=== PATIENT | female | born 1945 | race Caucasian/White ===

== ENCOUNTER 2022-12-20 04:44 | Inpatient (IN) | payer MEDICARE ==
[2022-12-20 05:45] LABS: #Basophils 0.1 thou/uL (0.0-0.2); #Eosinphils 0.6 thou/uL (0.0-0.7); #Monocytes 0.9 thou/uL (0.11-0.59); #Neutrophils 7.7 thou/uL (1.40-6.50); %Basophils 0.9 % (0.0-1.0); %Eosinophils 5.9 % (0.0-10.0); %Lymphocytes 6.9 % (21.0-51.0); %Monocytes 8.6 % (0.0-10.0); %Neutrophils 76.9 % (42.0-75.0); Hematocrit 41.4 % (36.0-47.0); Hemoglobin 14.5 g/dL (12.0-16.0); Mean Platelet Volume 9.5 fL (7.4-10.4); Platelet Count 176 10x3/uL (130-400); RBC Distribution Width 14.2 % (11.5-14.5); Red Blood Cell (RBC) Count 4.27 mill/uL (4.20-5.40)
[2022-12-20 06:09] LABS: ALT (SGPT) 24 U/L (8-55); AST (SGOT) 34 U/L (5-34); Albumin 4.1 g/dL (3.4-4.8); Alkaline Phosphatase 87 U/L (40-110); Anion Gap 15 mmol/L (10-20); BUN (Urea Nitrogen) 17 mg/dL (9.8-20.1); Bilirubin, Total 0.4 mg/dL (0.2-1.2); Calc. Creatinine Clearance 0 mL/min (70-130); Calcium 9.1 mg/dL (7.8-10.44); Carbon Dioxide 22 mmol/L (23-31); Chloride 96 mmol/L (98-107); Estimated GFR 34; Globulin 2.3 g/dL (2.4-3.5); Glucose 97 mg/dL (83-110); Potassium 4.9 mmol/L (3.5-5.1); Protein, Total 6.4 g/dL (5.8-8.1); Sodium 128 mmol/L (136-145)
[2022-12-20 06:13] LABS: Troponin I Less than 0.010 ng/mL (< 0.028)
[2022-12-20] MEDS ORDERED: Diazepam 10 MG/2 ML SYRINGE ONE (09:06)
[2022-12-20] MEDS ORDERED: HYDROcodone/Acetaminophen 5/325 mg Tablet ONE (11:31)
[2022-12-20] MEDS ORDERED: Bisacodyl 5 MG TAB PO PRN (13:16)
[2022-12-20] MEDS ORDERED: Bisacodyl 10 MG SUPP PR PRN (13:16)
[2022-12-20] MEDS ORDERED: hydrOXYzine 25 MG TAB ONE (13:20)
[2022-12-20 13:35] LABS: Hemoglobin A1c 4.8 % (4.0-6.0)
[2022-12-20 14:08] LABS: Anion Gap 18 mmol/L (10-20); BUN (Urea Nitrogen) 14 mg/dL (9.8-20.1); Calc. Creatinine Clearance 0 mL/min (70-130); Calcium 9.1 mg/dL (7.8-10.44); Carbon Dioxide 21 mmol/L (23-31); Chloride 98 mmol/L (98-107); Estimated GFR 48; Glucose 91 mg/dL (83-110); Potassium 4.5 mmol/L (3.5-5.1); Sodium 132 mmol/L (136-145)
[2022-12-20] MEDS ORDERED: Lidocaine 4% Patch TD SCH (15:30)
[2022-12-20 15:47] LABS: Free T4 (Free Thyroxine) 1.42 ng/dL (0.70-1.48)
[2022-12-20] MEDS ORDERED: Iopamidol-370 76% 500 ML MDV (1 ML CHARGE) ONE (15:49)
[2022-12-20 17:34] VITALS: BMI 20.4
[2022-12-20] MEDS: Lidocaine 4% Patch TD SCH (17:47)
[2022-12-20] MEDS: diphenhydrAMINE 25 MG CAP PO PRN ×2 (17:48→22:08)
[2022-12-20] MEDS: HYDROcodone/Acetaminophen 5/325 mg Tablet PO PRN (18:00)
[2022-12-20 18:46] LABS: Troponin I 0.022 ng/mL (< 0.028)
[2022-12-20] MEDS ORDERED: Atorvastatin Calcium 40 MG TAB PO SCH (21:00)
[2022-12-20] MEDS: Acetaminophen 325 MG TAB PO PRN (22:06)
[2022-12-20] MEDS: Dicyclomine 10 MG CAP PO SCH (22:08)
[2022-12-21] MEDS: HYDROcodone/Acetaminophen 5/325 mg Tablet PO PRN ×4 (00:30→20:57)
[2022-12-21] MEDS: Transdermal Patch Removal TOP SCH (04:54)
[2022-12-21 05:39] LABS: #Basophils 0.1 thou/uL (0.0-0.2); #Eosinphils 1.2 thou/uL (0.0-0.7); #Monocytes 0.8 thou/uL (0.11-0.59); #Neutrophils 4.4 thou/uL (1.40-6.50); %Basophils 1.2 % (0.0-1.0); %Eosinophils 16.4 % (0.0-10.0); %Lymphocytes 10.9 % (21.0-51.0); %Monocytes 10.8 % (0.0-10.0); %Neutrophils 60.1 % (42.0-75.0); Hemoglobin 14.2 g/dL (12.0-16.0); Mean Corpuscular HGB CONC 34.6 g/dL (32.0-36.0); Mean Corpuscular Hemoglobin 33.6 pg (27.0-31.0); Mean Corpuscular Volume 97.2 fl (78.0-98.0); Mean Platelet Volume 9.4 fL (7.4-10.4); Platelet Count 192 10x3/uL (130-400); Red Blood Cell (RBC) Count 4.22 mill/uL (4.20-5.40); White Blood Cell (WBC) Count 7.3 10x3/uL (4.8-10.8)
[2022-12-21 06:14] LABS: Anion Gap 13 mmol/L (10-20); BUN (Urea Nitrogen) 18 mg/dL (9.8-20.1); CK (CPK) 51 U/L (29-168); Calc. Creatinine Clearance 28 mL/min (70-130); Calcium 8.8 mg/dL (7.8-10.44); Carbon Dioxide 24 mmol/L (23-31); Cardiac Risk 1.9 (Less than 4.5); Chloride 98 mmol/L (98-107); Cholesterol 173 mg/dl (< 200 Desired); Estimated GFR 37; Glucose 110 mg/dL (83-110); HDL Cholesterol 91 mg/dL (>60 Neg Risk); LDL Cholesterol, Calculated 73 mg/dL; Magnesium 1.3 mg/dL (1.6-2.6); Potassium 4.3 mmol/L (3.5-5.1); Sodium 131 mmol/L (136-145); Triglycerides 43 mg/dL (Less than 150)
[2022-12-21] MEDS: Aspirin Chewable 81 MG TAB PO SCH (08:57)
[2022-12-21] MEDS: Dicyclomine 10 MG CAP PO SCH ×3 (08:57→20:59)
[2022-12-21] MEDS: LOTEPREDNOL 0.5% EA EYE SCH (08:58)
[2022-12-21] MEDS ORDERED: Zolpidem Tartrate 5 MG TAB PO PRN (09:57)
[2022-12-21] MEDS ORDERED: Magnesium Sulfate 4 GM in Sodium Chloride 0.9% 250 ML 250 ML IVPB SCH (10:00)
[2022-12-21] MEDS ORDERED: Electrolyte Replacement Protocol 1 EACH FS SCH (10:00)
[2022-12-21] MEDS ORDERED: hydrOXYzine 25 MG TAB PO PRN (10:22)
[2022-12-21] MEDS ORDERED: tiZANidine HCl 4 MG TAB PO SCH (10:30)
[2022-12-21] MEDS ORDERED: Magnesium Sulfate In Water 4 GM in Premix 1 BAG IVPB SCH (10:30)
[2022-12-21] MEDS ORDERED: Electrolyte Replacement Protocol FS PRN (10:30)
[2022-12-21] MEDS: tiZANidine HCl 4 MG TAB PO SCH ×2 (10:48→20:58)
[2022-12-21] MEDS: Morphine 2 MG/ML VIAL SLOW IVP PRN (10:56)
[2022-12-21] MEDS: Lidocaine 4% Patch TD SCH (14:50)
[2022-12-21] MEDS: Senokot S 8.6-50 MG TAB PO PRN (20:59)
[2022-12-21] MEDS: diphenhydrAMINE 25 MG CAP PO PRN (21:10)
[2022-12-21] MEDS: Ondansetron PF 4 MG/2 ML Vial IVP PRN (22:23)
[2022-12-22] MEDS: diphenhydrAMINE 25 MG CAP PO PRN (03:45)
[2022-12-22] MEDS: HYDROcodone/Acetaminophen 5/325 mg Tablet PO PRN ×3 (03:46→15:35)
[2022-12-22] MEDS: Transdermal Patch Removal TOP SCH (03:53)
[2022-12-22 06:07] LABS: #Basophils 0.1 thou/uL (0.0-0.2); #Monocytes 0.7 thou/uL (0.11-0.59); #Neutrophils 6.1 thou/uL (1.40-6.50); %Basophils 0.7 % (0.0-1.0); %Eosinophils 11.7 % (0.0-10.0); %Lymphocytes 8.6 % (21.0-51.0); %Monocytes 8.1 % (0.0-10.0); %Neutrophils 70.3 % (42.0-75.0); Hematocrit 38.9 % (36.0-47.0); Hemoglobin 13.5 g/dL (12.0-16.0); Mean Corpuscular HGB CONC 34.7 g/dL (32.0-36.0); Mean Corpuscular Volume 95.1 fl (78.0-98.0); Mean Platelet Volume 9.4 fL (7.4-10.4); Platelet Count 199 10x3/uL (130-400); RBC Distribution Width 13.4 % (11.5-14.5); Red Blood Cell (RBC) Count 4.09 mill/uL (4.20-5.40); White Blood Cell (WBC) Count 8.7 10x3/uL (4.8-10.8)
[2022-12-22 06:34] LABS: Anion Gap 15 mmol/L (10-20); BUN (Urea Nitrogen) 18 mg/dL (9.8-20.1); Calc. Creatinine Clearance 33 mL/min (70-130); Calcium 8.8 mg/dL (7.8-10.44); Carbon Dioxide 22 mmol/L (23-31); Chloride 98 mmol/L (98-107); Estimated GFR 45; Glucose 101 mg/dL (83-110); Magnesium 2.3 mg/dL (1.6-2.6); Potassium 4.5 mmol/L (3.5-5.1); Sodium 130 mmol/L (136-145)
[2022-12-22] MEDS: Morphine 2 MG/ML VIAL SLOW IVP PRN (08:19)
[2022-12-22] MEDS: tiZANidine HCl 4 MG TAB PO SCH ×2 (09:49→21:18)
[2022-12-22] MEDS: FLUoxetine HCl 10 MG CAP PO SCH (10:24)
[2022-12-22] MEDS: Nebivolol HCl 5 MG TAB PO SCH (10:24)
[2022-12-22] MEDS: Dicyclomine 10 MG CAP PO SCH ×3 (10:24→21:18)
[2022-12-22] MEDS: Aspirin Chewable 81 MG TAB PO SCH (10:25)
[2022-12-22] MEDS: LOTEPREDNOL 0.5% EA EYE SCH (10:36)
[2022-12-22] MEDS: Lidocaine 4% Patch TD SCH (15:36)
[2022-12-22] MEDS: Ondansetron PF 4 MG/2 ML Vial IVP PRN (19:01)
[2022-12-22] MEDS: Acetaminophen 325 MG TAB PO PRN (21:17)
[2022-12-23] MEDS: Acetaminophen 325 MG TAB PO PRN (04:30)
[2022-12-23] MEDS: Transdermal Patch Removal TOP SCH (04:41)
[2022-12-23 06:13] LABS: Anion Gap 16 mmol/L (10-20); BUN (Urea Nitrogen) 22 mg/dL (9.8-20.1); Calc. Creatinine Clearance 26 mL/min (70-130); Calcium 8.7 mg/dL (7.8-10.44); Carbon Dioxide 18 mmol/L (23-31); Chloride 96 mmol/L (98-107); Estimated GFR 33; Glucose 99 mg/dL (83-110); Sodium 125 mmol/L (136-145)
[2022-12-23] MEDS: Nebivolol HCl 5 MG TAB PO SCH (08:36)
[2022-12-23] MEDS: Dicyclomine 10 MG CAP PO SCH ×3 (08:38→20:53)
[2022-12-23] MEDS: FLUoxetine HCl 10 MG CAP PO SCH (08:38)
[2022-12-23] MEDS: HYDROcodone/Acetaminophen 5/325 mg Tablet PO PRN ×3 (08:38→20:51)
[2022-12-23] MEDS: Sodium Chloride 1 GM TAB PO SCH ×3 (08:39→20:53)
[2022-12-23] MEDS: Aspirin Chewable 81 MG TAB PO SCH (08:39)
[2022-12-23] MEDS: tiZANidine HCl 4 MG TAB PO SCH ×2 (08:40→20:52)
[2022-12-23] MEDS: LOTEPREDNOL 0.5% EA EYE SCH (08:46)
[2022-12-23] MEDS: Ondansetron PF 4 MG/2 ML Vial IVP PRN (09:07)
[2022-12-23 10:07] LABS: Sodium 126 mmol/L (136-145)
[2022-12-23] MEDS: Lidocaine 4% Patch TD SCH (14:53)
[2022-12-24] MEDS: Transdermal Patch Removal TOP SCH (02:22)
[2022-12-24] MEDS: HYDROcodone/Acetaminophen 5/325 mg Tablet PO PRN (04:16)
[2022-12-24] MEDS ORDERED: HYDROcodone/Acetaminophen 5/325 mg Tablet PO PRN (06:15)
[2022-12-24] MEDS: diphenhydrAMINE 25 MG CAP PO PRN (07:07)
[2022-12-24 08:02] LABS: Anion Gap 13 mmol/L (10-20); BUN (Urea Nitrogen) 23 mg/dL (9.8-20.1); Calc. Creatinine Clearance 31 mL/min (70-130); Calcium 8.7 mg/dL (7.8-10.44); Carbon Dioxide 20 mmol/L (23-31); Chloride 97 mmol/L (98-107); Estimated GFR 41; Glucose 69 mg/dL (83-110); Potassium 4.4 mmol/L (3.5-5.1); Sodium 126 mmol/L (136-145)
[2022-12-24] MEDS: Nebivolol HCl 5 MG TAB PO SCH (09:12)
[2022-12-24] MEDS: Aspirin Chewable 81 MG TAB PO SCH (09:12)
[2022-12-24] MEDS: FLUoxetine HCl 10 MG CAP PO SCH (09:13)
[2022-12-24] MEDS: Sodium Chloride 1 GM TAB PO SCH ×3 (09:13→21:19)
[2022-12-24] MEDS: LOTEPREDNOL 0.5% EA EYE SCH (09:13)
[2022-12-24] MEDS: Dicyclomine 10 MG CAP PO SCH ×3 (09:13→21:20)
[2022-12-24] MEDS: Senokot S 8.6-50 MG TAB PO PRN (09:17)
[2022-12-24] MEDS: tiZANidine HCl 4 MG TAB PO SCH ×2 (09:34→17:27)
[2022-12-24] MEDS: Lidocaine 4% Patch TD SCH (15:17)
[2022-12-24] MEDS: Ondansetron PF 4 MG/2 ML Vial IVP PRN (15:58)
[2022-12-25] MEDS: tiZANidine HCl 4 MG TAB PO SCH ×3 (01:23→16:41)
[2022-12-25] MEDS: Transdermal Patch Removal TOP SCH (04:08)
[2022-12-25 05:30] LABS: Anion Gap 12 mmol/L (10-20); BUN (Urea Nitrogen) 21 mg/dL (9.8-20.1); Calc. Creatinine Clearance 34 mL/min (70-130); Calcium 8.5 mg/dL (7.8-10.44); Carbon Dioxide 20 mmol/L (23-31); Chloride 100 mmol/L (98-107); Estimated GFR 46; Glucose 80 mg/dL (83-110); Potassium 4.9 mmol/L (3.5-5.1); Sodium 127 mmol/L (136-145)
[2022-12-25] MEDS: Acetaminophen 325 MG TAB PO PRN ×2 (06:42→16:03)
[2022-12-25] MEDS: Sodium Chloride 1 GM TAB PO SCH ×2 (09:30→16:02)
[2022-12-25] MEDS: FLUoxetine HCl 10 MG CAP PO SCH (09:30)
[2022-12-25] MEDS: Dicyclomine 10 MG CAP PO SCH ×2 (09:31→16:03)
[2022-12-25] MEDS: Nebivolol HCl 5 MG TAB PO SCH (09:31)
[2022-12-25] MEDS: Aspirin Chewable 81 MG TAB PO SCH (09:31)
[2022-12-25] MEDS: LOTEPREDNOL 0.5% EA EYE SCH (09:31)
[2022-12-25] MEDS: Senokot S 8.6-50 MG TAB PO PRN (10:03)
[2022-12-25] MEDS: Lidocaine 4% Patch TD SCH (16:04)
[2022-12-25 16:37] VITALS: BP 147/71; TEMP 97.8
== END 2022-12-25 17:30 | disposition swing bed (61) | DRG 644 ==
LOC: SUATTDRO 04:44 → ERS 04:44 → 2SE 13:16
PROVIDERS: ADMIT Family Medicine; ATTEND Family Medicine
DX: E22.2 Syndrome of inappropriate secretion of antidiuretic hormone (principal); N17.9 Acute kidney failure, unspecified; S22.32XA Fracture of one rib, left side, initial encounter for closed fracture; S32.019A Unspecified fracture of first lumbar vertebra, initial encounter for closed fracture; R55 Syncope and collapse; E86.9 Volume depletion, unspecified; Z66 Do not resuscitate; I12.9 Hypertensive chronic kidney disease with stage 1 through stage 4 chronic kidney disease, or unspecified chronic kidney disease; N18.30 Chronic kidney disease, stage 3 unspecified; F41.9 Anxiety disorder, unspecified; K83.8 Other specified diseases of biliary tract; S09.90XA Unspecified injury of head, initial encounter; R10.9 Unspecified abdominal pain; M62.838 Other muscle spasm; K21.9 Gastro-esophageal reflux disease without esophagitis; E87.5 Hyperkalemia; R94.6 Abnormal results of thyroid function studies; W18.30XA Fall on same level, unspecified, initial encounter; Z90.49 Acquired absence of other specified parts of digestive tract; Z90.710 Acquired absence of both cervix and uterus; Z90.5 Acquired absence of kidney; Z98.890 Other specified postprocedural states; Z86.73 Personal history of transient ischemic attack (TIA), and cerebral infarction without residual deficits
CPT/HCPCS: 36415; 36416; 70450; 71275; 72125; 72131; 74174; 76705; 80048; 80053; 80061; 82550; 83036; 83735; 83930; 83935; 84300; 84439; 84443; 84481; 84484; 85025; 93005; 93306; 93880; 94760; 96361; 96374; J2272; J2405; J3360; J3475; Q9967

== ENCOUNTER 2023-04-15 13:55 | Outpatient (CLI) | payer MEDICARE | END 2023-04-15 13:56 | disposition home or self-care (01) | LOC: ULT 13:55 | PROVIDERS: ATTEND Family Medicine | DX: M79.89 Other specified soft tissue disorders (principal); I87.2 Venous insufficiency (chronic) (peripheral); D68.9 Coagulation defect, unspecified; I82.402 Acute embolism and thrombosis of unspecified deep veins of left lower extremity; I82.412 Acute embolism and thrombosis of left femoral vein; I82.432 Acute embolism and thrombosis of left popliteal vein ==

== ENCOUNTER 2023-04-15 14:58 | Inpatient (IN) | payer MEDICARE ==
[~2023-04-15 14:58] MED LIST: Iopamidol-370 76% 500 ML MDV (1 ML CHARGE) ONE
[2023-04-15 16:26] LABS: #Basophils 0.1 thou/uL (0.0-0.2); #Eosinphils 1.1 thou/uL (0.0-0.7); #Monocytes 0.8 thou/uL (0.11-0.59); #Neutrophils 5.5 thou/uL (1.40-6.50); %Eosinophils 12.2 % (0.0-10.0); %Lymphocytes 12.6 % (21.0-51.0); %Monocytes 9.1 % (0.0-10.0); %Neutrophils 63.6 % (42.0-75.0); Hematocrit 37.7 % (36.0-47.0); Hemoglobin 12.3 g/dL (12.0-16.0); Mean Corpuscular HGB CONC 32.6 g/dL (32.0-36.0); Mean Corpuscular Hemoglobin 31.8 pg (27.0-31.0); Mean Corpuscular Volume 97.4 fl (78.0-98.0); Mean Platelet Volume 9.7 fL (7.4-10.4); Platelet Count 311 10x3/uL (130-400); RBC Distribution Width 13.6 % (11.5-14.5); Red Blood Cell (RBC) Count 3.87 mill/uL (4.20-5.40); White Blood Cell (WBC) Count 8.7 10x3/uL (4.8-10.8)
[2023-04-15 16:46] LABS: ALT (SGPT) 12 U/L (8-55); AST (SGOT) 21 U/L (5-34); Albumin 3.7 g/dL (3.4-4.8); Alkaline Phosphatase 61 U/L (40-110); Anion Gap 13 mmol/L (10-20); BUN (Urea Nitrogen) 21 mg/dL (9.8-20.1); Bilirubin, Total 0.5 mg/dL (0.2-1.2); Calc. Creatinine Clearance 0 mL/min (70-130); Calcium 9.4 mg/dL (7.8-10.44); Carbon Dioxide 20 mmol/L (23-31); Chloride 107 mmol/L (98-107); Estimated GFR 50; Globulin 2.7 g/dL (2.4-3.5); Glucose 80 mg/dL (83-110); Potassium 4.8 mmol/L (3.5-5.1); Protein, Total 6.4 g/dL (5.8-8.1); Sodium 135 mmol/L (136-145)
[2023-04-15 17:14] LABS: Prothrombin Time 13.4 sec (12.0-14.7)
[2023-04-15 17:15] LABS: PTT 30.9 sec (22.9-36.1)
[2023-04-15 17:18] LABS: Troponin I 0.021 ng/mL (< 0.028)
[2023-04-15] MEDS ORDERED: Ondansetron PF 4 MG/2 ML Vial IVP PRN (18:44)
[2023-04-15] MEDS ORDERED: Heparin 5,000 UNITS/ML VIAL ONE (18:54)
[2023-04-15] MEDS ORDERED: Heparin 25,000 units/D5W 500 ML ONE (18:54)
[2023-04-15 20:33] LABS: Hematocrit 36.9 % (36.0-47.0); Hemoglobin 12.2 g/dL (12.0-16.0); Platelet Count 294 10x3/uL (130-400)
[2023-04-15 21:19] LABS: PTT 237.3 sec (22.9-36.1)
[2023-04-15] MEDS: hydrALAZINE 25 MG TAB PO SCH (23:20)
[2023-04-15] MEDS: Sodium Chloride 1 GM TAB PO SCH (23:20)
[2023-04-16 01:22] LABS: #Basophils 0.1 thou/uL (0.0-0.2); #Eosinphils 1.4 thou/uL (0.0-0.7); #Monocytes 0.8 thou/uL (0.11-0.59); #Neutrophils 6.6 thou/uL (1.40-6.50); %Basophils 0.9 % (0.0-1.0); %Eosinophils 13.6 % (0.0-10.0); %Lymphocytes 12.6 % (21.0-51.0); %Neutrophils 63.6 % (42.0-75.0); Hematocrit 34.1 % (36.0-47.0); Hemoglobin 11.3 g/dL (12.0-16.0); Mean Corpuscular HGB CONC 33.1 g/dL (32.0-36.0); Mean Corpuscular Hemoglobin 32.6 pg (27.0-31.0); Mean Corpuscular Volume 98.3 fl (78.0-98.0); Mean Platelet Volume 9.2 fL (7.4-10.4); Platelet Count 288 10x3/uL (130-400); RBC Distribution Width 13.6 % (11.5-14.5); Red Blood Cell (RBC) Count 3.47 mill/uL (4.20-5.40); White Blood Cell (WBC) Count 10.5 10x3/uL (4.8-10.8)
[2023-04-16 02:07] LABS: Anion Gap 14 mmol/L (10-20); BUN (Urea Nitrogen) 23 mg/dL (9.8-20.1); Calc. Creatinine Clearance 0 mL/min (70-130); Calcium 8.6 mg/dL (7.8-10.44); Carbon Dioxide 20 mmol/L (23-31); Chloride 109 mmol/L (98-107); Estimated GFR 33; Glucose 125 mg/dL (83-110); Potassium 4.1 mmol/L (3.5-5.1); Sodium 139 mmol/L (136-145)
[2023-04-16 03:25] VITALS: BMI 21.2
[2023-04-16] MEDS: Nebivolol HCl 5 MG TAB PO SCH (08:18)
[2023-04-16] MEDS: FLUoxetine HCl 10 MG CAP PO SCH (08:19)
[2023-04-16] MEDS: Ipratropium/Albuterol 3 ML NEB NEB PRN (08:39)
[2023-04-16] MEDS: Heparin 10,000 UNITS/ 10 ML VIAL SLOW IVP SCH (10:33)
[2023-04-16] MEDS: Acetaminophen 325 MG TAB PO PRN (10:58)
[2023-04-16] MEDS: diphenhydrAMINE 50 MG/ML VIAL IVP PRN (10:59)
[2023-04-16] MEDS: diphenhydrAMINE 25 MG CAP PO PRN (19:42)
[2023-04-16] MEDS: Heparin 25,000 units/D5W 500 ML IVPB SCH (21:00)
[2023-04-17 05:25] LABS: #Basophils 0.1 thou/uL (0.0-0.2); #Eosinphils 1.4 thou/uL (0.0-0.7); #Monocytes 0.8 thou/uL (0.11-0.59); #Neutrophils 5.3 thou/uL (1.40-6.50); %Basophils 0.6 % (0.0-1.0); %Eosinophils 15.3 % (0.0-10.0); %Lymphocytes 15.4 % (21.0-51.0); %Monocytes 8.6 % (0.0-10.0); %Neutrophils 58.9 % (42.0-75.0); Hematocrit 33.4 % (36.0-47.0); Mean Corpuscular HGB CONC 32.9 g/dL (32.0-36.0); Mean Corpuscular Hemoglobin 32.5 pg (27.0-31.0); Mean Corpuscular Volume 98.8 fl (78.0-98.0); Mean Platelet Volume 9.6 fL (7.4-10.4); Platelet Count 294 10x3/uL (130-400); RBC Distribution Width 13.8 % (11.5-14.5); Red Blood Cell (RBC) Count 3.38 mill/uL (4.20-5.40)
[2023-04-17 05:59] LABS: Anion Gap 12 mmol/L (10-20); BUN (Urea Nitrogen) 17 mg/dL (9.8-20.1); Calc. Creatinine Clearance 40 mL/min (70-130); Calcium 8.8 mg/dL (7.8-10.44); Carbon Dioxide 20 mmol/L (23-31); Chloride 108 mmol/L (98-107); Estimated GFR 54; Glucose 90 mg/dL (83-110); Potassium 4.2 mmol/L (3.5-5.1); Sodium 136 mmol/L (136-145)
[2023-04-17] MEDS: Apixaban 5 MG TAB PO SCH ×2 (12:40→20:38)
[2023-04-17] MEDS: Furosemide 40 MG (4 mL) VIAL SLOW IVP SCH (12:40)
[2023-04-17] MEDS: Ondansetron ODT 4 MG TAB PO PRN (16:11)
[2023-04-17 19:17] LABS: Hematocrit 34.1 % (36.0-47.0); Hemoglobin 11.2 g/dL (12.0-16.0); Platelet Count 293 10x3/uL (130-400)
[2023-04-17] MEDS: hydrALAZINE 25 MG TAB PO SCH (20:38)
[2023-04-17] MEDS ORDERED: Non-Formulary Item 1 EACH (Hydralazine Hcl [Hydralazine Hcl] 50 MG Tablet) PO SCH (21:00)
[2023-04-18 04:43] LABS: #Basophils 0.1 thou/uL (0.0-0.2); #Eosinphils 1.2 thou/uL (0.0-0.7); #Monocytes 0.8 thou/uL (0.11-0.59); #Neutrophils 4.1 thou/uL (1.40-6.50); %Basophils 0.7 % (0.0-1.0); %Eosinophils 16.4 % (0.0-10.0); %Lymphocytes 13.2 % (21.0-51.0); %Neutrophils 57.6 % (42.0-75.0); Hematocrit 32.1 % (36.0-47.0); Hemoglobin 10.6 g/dL (12.0-16.0); Mean Corpuscular Hemoglobin 32.7 pg (27.0-31.0); Mean Corpuscular Volume 99.1 fl (78.0-98.0); Mean Platelet Volume 9.5 fL (7.4-10.4); Platelet Count 304 10x3/uL (130-400); RBC Distribution Width 13.7 % (11.5-14.5); Red Blood Cell (RBC) Count 3.24 mill/uL (4.20-5.40); White Blood Cell (WBC) Count 7.1 10x3/uL (4.8-10.8)
[2023-04-18 05:15] LABS: Anion Gap 13 mmol/L (10-20); BUN (Urea Nitrogen) 20 mg/dL (9.8-20.1); Calc. Creatinine Clearance 34 mL/min (70-130); Calcium 8.5 mg/dL (7.8-10.44); Carbon Dioxide 21 mmol/L (23-31); Chloride 106 mmol/L (98-107); Estimated GFR 44; Glucose 83 mg/dL (83-110); Potassium 4.9 mmol/L (3.5-5.1); Sodium 135 mmol/L (136-145)
[2023-04-18] MEDS: Furosemide 40 MG TAB PO SCH (08:57)
[2023-04-18] MEDS: Magnesium Citrate 300 ML BOT PO SCH (09:44)
[2023-04-18] MEDS: Senokot S 8.6-50 MG TAB PO SCH (20:41)
[2023-04-19 06:51] LABS: #Basophils 0.1 thou/uL (0.0-0.2); #Eosinphils 1.1 thou/uL (0.0-0.7); #Monocytes 0.7 thou/uL (0.11-0.59); #Neutrophils 4.8 thou/uL (1.40-6.50); %Basophils 0.8 % (0.0-1.0); %Eosinophils 14.3 % (0.0-10.0); %Lymphocytes 14.9 % (21.0-51.0); %Monocytes 9.2 % (0.0-10.0); %Neutrophils 59.9 % (42.0-75.0); Hematocrit 34.5 % (36.0-47.0); Hemoglobin 11.2 g/dL (12.0-16.0); Mean Corpuscular HGB CONC 32.5 g/dL (32.0-36.0); Mean Corpuscular Hemoglobin 32.4 pg (27.0-31.0); Mean Corpuscular Volume 99.7 fl (78.0-98.0); Mean Platelet Volume 9.3 fL (7.4-10.4); Platelet Count 301 10x3/uL (130-400); RBC Distribution Width 13.7 % (11.5-14.5); Red Blood Cell (RBC) Count 3.46 mill/uL (4.20-5.40)
[2023-04-19 07:05] LABS: Anion Gap 12 mmol/L (10-20); BUN (Urea Nitrogen) 23 mg/dL (9.8-20.1); Calc. Creatinine Clearance 31 mL/min (70-130); Calcium 8.7 mg/dL (7.8-10.44); Carbon Dioxide 23 mmol/L (23-31); Chloride 106 mmol/L (98-107); Estimated GFR 40; Glucose 81 mg/dL (83-110); Potassium 4.3 mmol/L (3.5-5.1); Sodium 137 mmol/L (136-145)
[2023-04-19 18:47] LABS: Hemoglobin 11.8 g/dL (12.0-16.0); Platelet Count 295 10x3/uL (130-400)
[2023-04-20 06:11] LABS: #Basophils 0.1 thou/uL (0.0-0.2); #Eosinphils 1.1 thou/uL (0.0-0.7); #Monocytes 0.9 thou/uL (0.11-0.59); #Neutrophils 5.1 thou/uL (1.40-6.50); %Basophils 0.7 % (0.0-1.0); %Eosinophils 13.1 % (0.0-10.0); %Lymphocytes 15.1 % (21.0-51.0); %Monocytes 10.1 % (0.0-10.0); %Neutrophils 59.9 % (42.0-75.0); Hematocrit 33.2 % (36.0-47.0); Hemoglobin 10.9 g/dL (12.0-16.0); Mean Corpuscular HGB CONC 32.8 g/dL (32.0-36.0); Mean Corpuscular Hemoglobin 32.3 pg (27.0-31.0); Mean Corpuscular Volume 98.5 fl (78.0-98.0); Mean Platelet Volume 9.3 fL (7.4-10.4); Platelet Count 280 10x3/uL (130-400); RBC Distribution Width 13.5 % (11.5-14.5); Red Blood Cell (RBC) Count 3.37 mill/uL (4.20-5.40); White Blood Cell (WBC) Count 8.5 10x3/uL (4.8-10.8)
[2023-04-20 06:56] LABS: Anion Gap 13 mmol/L (10-20); BUN (Urea Nitrogen) 29 mg/dL (9.8-20.1); Calc. Creatinine Clearance 36 mL/min (70-130); Calcium 8.8 mg/dL (7.8-10.44); Carbon Dioxide 21 mmol/L (23-31); Chloride 105 mmol/L (98-107); Estimated GFR 47; Glucose 82 mg/dL (83-110); Potassium 4.2 mmol/L (3.5-5.1); Sodium 135 mmol/L (136-145)
[2023-04-20] MEDS ORDERED: hydrALAZINE 25 MG TAB PO PRN (14:52)
[2023-04-20] MEDS: Sodium Chloride 1 GM TAB PO SCH (21:05)
[2023-04-20] MEDS: diphenhydrAMINE 25 MG CAP PO PRN (21:06)
[2023-04-21 08:25] VITALS: TEMP 97.8
[2023-04-21] MEDS: Furosemide 20 MG TAB PO SCH (08:33)
[2023-04-21 16:14] VITALS: BP 143/75
[2023-04-24] MEDS ORDERED: Apixaban 5 MG TAB PO SCH (09:00)
== END 2023-04-21 17:20 | disposition home or self-care (01) | DRG 175 ==
LOC: ERS 14:58 → ERHOLD 18:42 → 2NO 21:06 → T4-B 04-17 12:25
PROVIDERS: ADMIT Hospitalist; ATTEND Internal Medicine
DX: I26.99 Other pulmonary embolism without acute cor pulmonale (principal); I50.33 Acute on chronic diastolic (congestive) heart failure; I82.411 Acute embolism and thrombosis of right femoral vein; I82.431 Acute embolism and thrombosis of right popliteal vein; N17.9 Acute kidney failure, unspecified; Z66 Do not resuscitate; I13.0 Hypertensive heart and chronic kidney disease with heart failure and stage 1 through stage 4 chronic kidney disease, or unspecified chronic kidney disease; E87.1 Hypo-osmolality and hyponatremia; N18.30 Chronic kidney disease, stage 3 unspecified; D53.9 Nutritional anemia, unspecified; D63.1 Anemia in chronic kidney disease; K58.9 Irritable bowel syndrome, unspecified; Z86.73 Personal history of transient ischemic attack (TIA), and cerebral infarction without residual deficits; Z90.710 Acquired absence of both cervix and uterus; Z88.8 Allergy status to other drugs, medicaments and biological substances; Z79.899 Other long term (current) drug therapy; Z90.49 Acquired absence of other specified parts of digestive tract; Z98.890 Other specified postprocedural states
CPT/HCPCS: 36415; 71045; 71275; 80048; 80053; 83735; 83880; 84484; 85025; 85610; 85730; 93005; 94640; 96365; 96366; 96375; J1200; J1644; J1940; J7620; Q0162

== ENCOUNTER 2023-07-16 17:03 | Inpatient (IN) | payer MEDICARE, OTHER ==
[2023-07-16 19:06] LABS: Amphetamine Not Detected (NotDetected); Barbiturates Screen Not Detected (NotDetected); Benzodiazepine Screen Not Detected (NotDetected); Cocaine Metabolite Screen Not Detected (NotDetected); Methadone Not Detected (NotDetected); Methamphetamine Not Detected (NotDetected); Opiate Screen Not Detected (NotDetected); Oxycodone Screen Not Detected (NotDetected); Phencyclidine (PCP) Not Detected (NotDetected); THC/Cannabinoid Screen Not Detected (NotDetected); Tricyclic Screen Not Detected (NotDetected)
[2023-07-16 19:10] LABS: Bacteria/HPF 2+ HPF (None Seen); Bilirubin Negative (Negative); Blood, Urine 1+ (Negative); CAUTI Indications for Culture Dysuria,urgency,freq; Clarity Turbid (Clear); Glucose, Urine (Dipstick) Normal (Negative); Ketone, Urine 10 mg/dL (Negative); Leukocyte 500 Leu/uL (Negative); Nitrite Negative (Negative); Protein, Urine (Dipstick) 20 mg/dL (Neg-Trace); Specific Gravity, Urine 1.015 (1.002-1.036); Squamous Epithelial None Seen HPF (0-3); WBC/HPF Greater than 50 HPF (0-3); pH, Urine 5.5 (5.0-9.0)
[2023-07-16 19:22] LABS: Urine Culture Reflex Yes Yes
[2023-07-16] MEDS ORDERED: cefTRIAXone (ROCEPHIN) 2 GM VIAL ONE (19:29)
[2023-07-16] MEDS ORDERED: Sodium Chloride 0.9% 100 ML ONE (19:29)
[2023-07-16 20:18] LABS: #Basophils 0.06 10x3/uL (0.0-0.2); %Basophils 0.9 % (0.0-1.0); %Eosinophils 4.1 % (0.0-10.0); %Lymphocytes 11.1 % (21.0-51.0); %Monocytes 12.3 % (0.0-10.0); %Neutrophils 70.8 % (42.0-75.0); Hematocrit 38.8 % (36.0-47.0); Hemoglobin 13.1 g/dL (12.0-16.0); Mean Corpuscular HGB CONC 33.8 g/dL (32.0-36.0); Mean Corpuscular Hemoglobin 32.9 pg (27.0-31.0); Mean Corpuscular Volume 97.5 fL (78.0-98.0); Mean Platelet Volume 9.5 fL (7.4-10.4); Platelet Count 206 10x3/uL (130-400); RBC Distribution Width 13.7 % (11.5-14.5); Red Blood Cell (RBC) Count 3.98 mill/uL (4.20-5.40)
[2023-07-16 20:28] LABS: Lipase 12 U/L (8-78)
[2023-07-16 20:30] LABS: Acetaminophen Less than 10 mcg/mL (10.0-30.0); Alcohol Less than 10.0 mg/dL (Less than 10); Salicylate Less than 8.0 mg/dL (15.0-30.0)
[2023-07-16 20:32] LABS: ALT (SGPT) 47 U/L (8-55); AST (SGOT) 75 U/L (5-34); Albumin 3.4 g/dL (3.4-4.8); Alkaline Phosphatase 67 U/L (40-110); Anion Gap 19 mmol/L (10-20); BUN (Urea Nitrogen) 42 mg/dL (9.8-20.1); Bilirubin, Total 0.8 mg/dL (0.2-1.2); CK (CPK) 677 U/L (29-168); Calc. Creatinine Clearance 0 mL/min (70-130); Calcium 8.7 mg/dL (7.8-10.44); Carbon Dioxide 18 mmol/L (23-31); Chloride 111 mmol/L (98-107); Estimated GFR 30; Globulin 2.4 g/dL (2.4-3.5); Glucose 81 mg/dL (83-110); Potassium 4.3 mmol/L (3.5-5.1); Protein, Total 5.8 g/dL (5.8-8.1); Sodium 144 mmol/L (136-145)
[2023-07-16 20:37] LABS: Troponin I 0.086 ng/mL (< 0.028)
[2023-07-16] MEDS ORDERED: Vancomycin 1 GM/200 ML (FROZEN) BAG ONE (21:50)
[2023-07-16] MEDS ORDERED: Aspirin Chewable 81 MG TAB ONE ×2 (21:50→21:52)
[2023-07-16] MEDS ORDERED: Ondansetron PF 4 MG/2 ML Vial IVP PRN (22:56)
[2023-07-16] MEDS ORDERED: Ondansetron ODT 4 MG TAB PO PRN (22:56)
[2023-07-16] MEDS: D5 1/2 NS w/20 mEq KCL 1,000 ML IV SCH (23:30)
[2023-07-17 00:05] LABS: #Basophils 0.08 10x3/uL (0.0-0.2); %Basophils 1.2 % (0.0-1.0); %Eosinophils 6.7 % (0.0-10.0); %Monocytes 12.9 % (0.0-10.0); %Neutrophils 62.3 % (42.0-75.0); Hematocrit 39.4 % (36.0-47.0); Hemoglobin 13.3 g/dL (12.0-16.0); Mean Corpuscular HGB CONC 33.8 g/dL (32.0-36.0); Mean Corpuscular Hemoglobin 33.3 pg (27.0-31.0); Mean Corpuscular Volume 98.5 fL (78.0-98.0); Mean Platelet Volume 9.5 fL (7.4-10.4); Platelet Count 193 10x3/uL (130-400); RBC Distribution Width 13.9 % (11.5-14.5)
[2023-07-17 00:26] LABS: Anion Gap 18 mmol/L (10-20); BUN (Urea Nitrogen) 39 mg/dL (9.8-20.1); Calc. Creatinine Clearance 0 mL/min (70-130); Calcium 8.9 mg/dL (7.8-10.44); Carbon Dioxide 18 mmol/L (23-31); Chloride 110 mmol/L (98-107); Estimated GFR 37; Glucose 105 mg/dL (83-110); Potassium 3.9 mmol/L (3.5-5.1); Sodium 142 mmol/L (136-145)
[2023-07-17 00:27] LABS: Troponin I 0.075 ng/mL (< 0.028)
[2023-07-17] MEDS ORDERED: Pantoprazole DR 40 MG TAB PO SCH (09:00)
[2023-07-17] MEDS: hydrALAZINE 25 MG TAB PO SCH (09:41)
[2023-07-17] MEDS: Enoxaparin 30 MG (0.3 mL) SYRINGE SC SCH (09:41)
[2023-07-17] MEDS: FLUoxetine HCl 10 MG CAP PO SCH (09:42)
[2023-07-17] MEDS: Pantoprazole DR 40 MG TAB PO SCH (09:42)
[2023-07-17] MEDS: Sodium Chloride 1 GM TAB PO SCH (09:42)
[2023-07-17] MEDS: Nebivolol HCl 5 MG TAB PO SCH (09:42)
[2023-07-17] MEDS: cefTRIAXone\\ROCEPHIN 1 GM in Sodium Chloride 0.9% 100 ML IVPB SCH (14:15)
[2023-07-17] MEDS: Apixaban 5 MG TAB PO SCH (20:39)
[2023-07-18] MEDS: Acetaminophen 325 MG TAB PO PRN (00:02)
[2023-07-18 01:14] LABS: Magnesium 1.5 mg/dL (1.6-2.6); Potassium 3.6 mmol/L (3.5-5.1)
[2023-07-18 06:30] LABS: Anion Gap 14 mmol/L (10-20); BUN (Urea Nitrogen) 30 mg/dL (9.8-20.1); CK (CPK) 164 U/L (29-168); Calc. Creatinine Clearance 31 mL/min (70-130); Calcium 8.7 mg/dL (7.8-10.44); Carbon Dioxide 20 mmol/L (23-31); Chloride 111 mmol/L (98-107); Estimated GFR 45; Glucose 85 mg/dL (83-110); Potassium 3.7 mmol/L (3.5-5.1); Sodium 141 mmol/L (136-145)
[2023-07-18] MEDS ORDERED: Magnesium Sulfate 4 GM in Sodium Chloride 0.9% 250 ML 250 ML IVPB SCH (07:45)
[2023-07-18] MEDS: Magnesium Sulfate In Water 4 GM in Premix 1 BAG IVPB SCH (08:38)
[2023-07-18] MEDS: diphenhydrAMINE 25 MG CAP PO SCH (21:25)
[2023-07-19] MEDS: Sodium Chloride 0.9% 500 ML IV SCH (02:33)
[2023-07-19 05:43] LABS: #Basophils 0.07 10x3/uL (0.0-0.2); %Basophils 1.3 % (0.0-1.0); %Eosinophils 13.3 % (0.0-10.0); %Lymphocytes 25.3 % (21.0-51.0); %Monocytes 15.4 % (0.0-10.0); %Neutrophils 43.4 % (42.0-75.0); Hematocrit 33.9 % (36.0-47.0); Hemoglobin 11.6 g/dL (12.0-16.0); Mean Corpuscular HGB CONC 34.2 g/dL (32.0-36.0); Mean Corpuscular Hemoglobin 33.5 pg (27.0-31.0); Mean Platelet Volume 9.6 fL (7.4-10.4); Platelet Count 214 10x3/uL (130-400); RBC Distribution Width 13.8 % (11.5-14.5); Red Blood Cell (RBC) Count 3.46 mill/uL (4.20-5.40)
[2023-07-19 06:13] LABS: Anion Gap 13 mmol/L (10-20); BUN (Urea Nitrogen) 23 mg/dL (9.8-20.1); Calc. Creatinine Clearance 38 mL/min (70-130); Calcium 8.6 mg/dL (7.8-10.44); Carbon Dioxide 18 mmol/L (23-31); Chloride 110 mmol/L (98-107); Estimated GFR 58; Glucose 84 mg/dL (83-110); Magnesium 2.2 mg/dL (1.6-2.6); Potassium 3.8 mmol/L (3.5-5.1); Sodium 137 mmol/L (136-145)
[2023-07-20] MEDS: Calcium Carbonate 500 MG ChewTAB PO PRN (00:18)
[2023-07-20] MEDS: hydrALAZINE 25 MG TAB PO SCH (16:14)
[2023-07-21] MEDS: hydrALAZINE 25 MG TAB PO SCH ×3 (10:48→15:42)
[2023-07-21] MEDS: Magnesium Citrate 300 ML BOT PO SCH (10:49)
[2023-07-22 10:47] VITALS: BMI 20.9
[2023-07-22 12:05] VITALS: BP 133/62; TEMP 98.5
== END 2023-07-22 14:57 | disposition home health service (06) | DRG 565 ==
LOC: ERS 17:03 → 2NO 21:18 → OBSVTOIN 07-18 09:00
PROVIDERS: ADMIT Student in an Organized Health Care Education/Training Program; ATTEND Family Medicine
DX: T79.6XXA Traumatic ischemia of muscle, initial encounter (principal); I13.0 Hypertensive heart and chronic kidney disease with heart failure and stage 1 through stage 4 chronic kidney disease, or unspecified chronic kidney disease; N39.0 Urinary tract infection, site not specified; I50.32 Chronic diastolic (congestive) heart failure; N17.9 Acute kidney failure, unspecified; Z66 Do not resuscitate; S00.03XA Contusion of scalp, initial encounter; N18.30 Chronic kidney disease, stage 3 unspecified; I45.10 Unspecified right bundle-branch block; B96.20 Unspecified Escherichia coli [E. coli] as the cause of diseases classified elsewhere; K58.9 Irritable bowel syndrome, unspecified; R79.89 Other specified abnormal findings of blood chemistry; Z88.8 Allergy status to other drugs, medicaments and biological substances; Z79.899 Other long term (current) drug therapy; Z90.5 Acquired absence of kidney; Z90.49 Acquired absence of other specified parts of digestive tract; Z98.890 Other specified postprocedural states
CPT/HCPCS: 36415; 51701; 70450; 71045; 72125; 80048; 80053; 80306; 80307; 81001; 82140; 82550; 83605; 83690; 83735; 83880; 84484; 85025; 87040; 87077; 87086; 87186; 93005; 96372; 96374; 96375; 96376; G0378; J0696; J1650; J3370-JW; J3475; J3480; J3490; J7050